=== PATIENT | female | born 1965 | race Two or more races ===

== ENCOUNTER → 2024-10-18 | Outpatient (CLI) | payer MEDICAID, SELFPAY ==
--- NOTE | 2024-10-18 14:30 | XR_ITS ---
Examination: Screening digital mammography, bilateral Computer aided detection 3-D breast Tomosynthesis, bilateral Date and time of exam: October 18, 2024 1429 hours No priors Indication: Screening Technique: Nonmagnified MLO, CC views of the breasts to been obtained, reconstructed from 3-D Tomosynthesis images. R2 computer aided detection program utilized for evaluation of suspicious masses and/or abnormal calcifications. 3-D Tomosynthesis images obtained. Findings: The breasts are heterogeneously dense, which may obscure small masses Benign calcifications No suspicious masses Impression: BI-RADS category II: Benign Findings. Recommend 1 year follow-up mammogram.
== END | disposition home or self-care (01) ==
LOC: CDIM 14:12
PROVIDERS: Referring Provider Physician Assistant; Visit Provider Physician Assistant
DX: Z12.31 Encounter for screening mammogram for malignant neoplasm of breast (principal); R92.323 Mammographic fibroglandular density, bilateral breasts; R92.1 Mammographic calcification found on diagnostic imaging of breast
CPT/HCPCS: 77063; 77067

== ENCOUNTER → 2024-12-31 | Outpatient (CLI) | payer MEDICAID, SELFPAY ==
--- NOTE | 2024-12-31 09:13 | XR_ITS ---
Examination: Abdomen sonogram, complete Date and time of exam: December 31, 2024 at 0924 hours INDICATIONS: Epigastric pain beginning 3 days ago. Technique: Multiple real-time grayscale transabdominal sonographic images of the abdomen have been obtained. Findings: Numerous gallstones Gallbladder wall 0.2 cm no edema Common bile duct 0.3 cm Pancreatic head 1.8 cm Aorta not enlarged Liver 15.7 cm smooth contour anterior right lobe liver lesion 6 x 8 mm, likely hemangioma Normal hepatopedal portal venous flow Patent IVC Right kidney 10.0 x 5.3 x 6.2 cm cortex 2.3 cm Left kidney 10.1 x 4.8 x 5.6 cm cortex 1.9 cm Mild bilateral renal parenchymal scar formation No hydronephrosis Spleen 11.6 cm IMPRESSION: Lithiasis, negative for cholecystitis Recommend 6 month follow-up hepatic sonography to document stability of small probable hemangioma right lobe of the liver Mild bilateral renal parenchymal scar formation, no hydronephrosis
== END | disposition home or self-care (01) ==
PROVIDERS: PCP Physician Assistant; Referring Provider Physician Assistant; Visit Provider Physician Assistant
DX: N28.89 Other specified disorders of kidney and ureter (principal)
CPT/HCPCS: 76700

== ENCOUNTER 2025-03-05 08:30 | Day surgery (SDC) | payer MEDICAID, SELFPAY ==
[2025-03-05] VITALS (22 sets, daily range): BP systolic 72–151; BP diastolic 49–98; PULSE 69–120; RESP 12–23; TEMP 36.6–36.8; O2SAT 97–100; BMI 24.0
[2025-03-05] MEDS: RINGERS LACTATED 1000 ML 1,000 ML 20 ML IV (11:53)
[2025-03-05] MEDS: DiphenhydrAMINE INJ 50 MG/ML VIAL 25 MG IV (11:57)
[2025-03-05] MEDS: fentaNYL CIT INJ 50 mCg/ML AMP 2ML (ASD USE ONLY) IV (12:02)
[2025-03-05] MEDS: MIDAZOLAM INJ 1 MG/ML VIAL 2 ML (ASD USE ONLY) 2 MG IV (12:04)
[2025-03-05] MEDS: LIDOCAINE JELLY 2% (Urojet) 10 ML TUBE TOP (12:13)
--- NOTE | 2025-03-05 12:44 | SUR.PHASEII ---
PATIENT INTO RECOVERY WITH NO ACUTE DISTRESS NOTED, V/S STABLE, NO COMPLAINTS OF PAIN OR NAUSEA AT THIS TIME, REPORT RECEIVED FROM [employer] RN, PATIENT ACTIVELY PASSING FLATUS.
--- NOTE | 2025-03-05 12:44 | SUR.PHASEII ---
ORDERS AN ADDITIONAL 1000ML OF LR TO BE ADMINISTERED IV BOLUS PRIOR TO D/C.
[2025-03-05] MEDS: RINGERS LACTATED 1000 ML 1,000 ML 999 ML IV (13:25)
--- NOTE | 2025-03-05 13:35 | SUR.PHASEII ---
PATIENT V/S STABLE, RESTING QUIETLY WITH EYES CLOSED, ABDOMEN SOFT AND NONTENDER. PATIENT RECEIVING IV BOLUS, ALLOWING PATIENT TO REST.
--- NOTE | 2025-03-05 14:35 | SUR.PHASEII ---
LR IV BOLUS COMPLETE AT 1435, PATIENT AMBULATES TO RESTROOM WITH NO DIFFICULTIES AND WITH STEADY GAIT.
--- NOTE | 2025-03-05 14:35 | SUR.PHASEII ---
patient drinking apple juice, v/s remain stable, patient denies pain and nausea.
== END 2025-03-05 15:05 | disposition home or self-care (01) ==
PROVIDERS: PCP Physician Assistant; Referring Provider Internal Medicine Gastroenterology; Visit Provider Internal Medicine Gastroenterology
PROC: 0DBE8ZX Excision of Large Intestine, Via Natural or Artificial Opening Endoscopic, Diagnostic (ICD-10-PCS; CPT 45380; principal; 2025-03-05 10:15)
PROC: (CPT 43239; 2025-03-05 10:15)
DX: D12.0 Benign neoplasm of cecum (principal); D12.8 Benign neoplasm of rectum; K62.89 Other specified diseases of anus and rectum; K64.2 Third degree hemorrhoids; K64.4 Residual hemorrhoidal skin tags; K29.51 Unspecified chronic gastritis with bleeding
CPT/HCPCS: 45385; 45380; A4217; A4649; J1200; J2250; J3010; J7120